=== PATIENT | male | born 2005 | race Caucasian/White ===

== ENCOUNTER 2024-10-15 13:34 | Emergency (ER) | payer OTHER, SELFPAY ==
--- OUTSIDE RECORDS SUMMARY | 2024-10-15 13:36 | XMS_ITS | Encounter Summary ---
Author Organization [facility] Address [address] [place] [address] Care Team Providers Care Automobile Brake Bonder Name Role Phone Vito Garcia MD Primary Care Provider [phone] Reason for Visit * Reason Onset Date Comments Insurance Issue/question 06/23/2017 Encounter Details Date Type Department Care Team (Late st Contact Info) Description 06/23/2017 Telephone [facility] - Neurology [facility] [place] [address] Alem Barrett APRN-CNP Insurance Issue/question Social History Tobacco Use Types Packs/Day Years Used Date Smoking Tobacco: Never Alcohol Use Standard Drinks/Week Comments No 0 (1 standard drink = 0.6 oz pur e alcohol) Sex and Gender Information Value Date Recorded Sex Assigned at Not on file Gender Identity Not on file Sexual Orientation Not on file documented as of this encounter Miscellaneous Notes * Telephone Encounter - Alem Barrett APRN-CNP - 06/23/2017 10:01 AM CDT Referral as requested for psychiatry placed. * Telephone Encounter - Chuy Judith M - 06/23/2017 9:38 AM CDT I spoke with mom and she needs a referral to Psychiatry instead of Psychology because insurance will not pay for it. documented in this encounter Plan of Treatment Not on file documented as of this encounter Visit Diagnoses Diagnosis Attention deficit hyperactivity disorder (ADHD), unspecified ADHD type- Primary documented in this encounter Care Teams Automobile Brake Bonder Relationship Specialty Start Date End Date Vito Garcia MD [address] [place] [id number] PCP - General Pediatrics 05/29/17 documented as of this encounter
--- OUTSIDE RECORDS SUMMARY | 2024-10-15 13:36 | XMS_ITS | Clinical Summary ---
Author Organization [facility] Address [address] [place] [address]. [place], [place] [address] [place] [address] Care Team Providers Care Blood Bank Booking Clerk Name Role Phone Unavailable Primary Care Provider Unavailabl e Social History Tobacco Use Types Packs/Day Years Used Date Smoking Tobacco: Never Assessed Sex and Gender Information Value Date Recorded Sex Assigned at Not on file Legal Sex Male 2:41 PM CDT Gender Identity Not on file Sexual Orientation Not on file Plan of Treatment Health Maintenance Due Date Last Done Comments Annual Physical 2007 HPV Vaccines (1 - Male 3-dos e series) 2019 Meningococcal B Vaccine (1 o f 2 - Standard) 2020 Hepatitis C 2022 DTaP, Tdap and Td Vaccines ( 1 - Tdap) 2023 Hepatitis B Vaccines (1 of 3 - 19+ 3-dose series) 2023 COVID-19 Vaccine ( - 2023-2 5 season) 2024 Influenza Adult (#1) 2024 Meningococcal Vaccine Aged Out No tyrone jennifer eligible based on patient's age to complete this topic Pneumococcal Vaccine: Pediat rics (0 to 5 Years) and At-Risk Patients (6 to 64 Years) Aged Out No longer eligible b ased on patient's age to complete this topic RSV Immunizations Under 20 Months Aged Out No longer eligible based on patient's age to complete this topic
--- OUTSIDE RECORDS SUMMARY | 2024-10-15 13:36 | XMS_ITS | Clinical Summary ---
Author Organization [facility] Address [address] [facility] [place] [address] Care Team Providers Care Chief Credit Officer Name Role Phone Vito Garcia MD Primary Care Provider [phone] Source Comments [facility],non-owned Affiliates and Associated Physician Practices is amultiple site organization consisting of ambulatory clinics and hospital sitesin [place], [place], [place] and [place]. This disclosure is being madepursuant to the Care Everywhere program and may not contain all information available regarding this patient. Last updated 18.[facility] Allergies No known active allergies Medications * Be aware that medications may not be up to date on this document. Alwaysverify current medications with the patient. 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 He stretches neck, eye blinking Vocal: Shouts out or screeches present before motor movements. He denies urges or suppressibility present. He is not always aware of movements and is not bothered by movements and vocalizations. Co-occurring conditions: ADHD/impulsivity yes Obsessive compulsive behavior-no Learning issues-no Behavior issues-none Anxiety-YES Mood problems-no Social skills deficits/social functioning-possibly Sleep problems-yes Assessment & Plan (07/06/2017 1:59 PM CDT): Tic disorder with associated anxiety and ADHD. Discussed tic disorder and usual progression. Discussed possible medications and side effects. Have declined treatmetn with medications. Also discussed that tics may worsen some with ADHD medications but family has not noted increase tics with adminitstation of ADHD medications. Discussed best way to manage tics in school setting. Encouraged counseling for anxiety concerns. Will follow up in about 3 months or sooner as needed Attention deficit hyperactivity disorder (ADHD) 06/19/2017 Resolved Problems Problem Noted Date Diagnosed Date Resolved Date Outbursts of explosive behavior 06/19/2017 07/06/2017 Overview (07/06/2017): Social History Tobacco Use Types Packs/Day Years Used Date Smoking Tobacco: Never Smokeless Tobacco: Never Alcohol Use Standard Drinks/Week Comments No 0 (1 standard drink = 0.6 oz pur e alcohol) Sex and Gender Information Value Date Recorded Sex Assigned at Not on file Gender Identity Not on file Sexual Orientation Not on file Last Filed Vital Signs Vital Sign Reading Time Taken Comments Blood Pressure 132/89 04/18/2018 1:50 PM CDT Pulse 68 04/18/2018 2:27 PM CDT Temperature 37.1 ??C (98.8 ??F) 04/18/2018 1:48 PM CD T Respiratory Rate 16 04/18/2018 2:27 PM CDT Oxygen Saturation 97% 04/18/2018 1:50 PM CDT Inhaled Oxygen Concentration - - Weight 61.4 kg (135 lb 5.8 oz) 06/18/2018 3:29 P M CDT Height 164.3 cm (5' 4.69 ) 06/18/2018 3:29 PM CD T Body Mass Index 22.75 06/18/2018 3:29 PM CDT Body Mass Index Percentile 87.01% 06/18/2018 3:2 9 PM CDT Growth Chart: CDC (Boys, 2-2 0 Years) Plan of Treatment Health Maintenance Due Date Last Done Comments HIV SCREENING 2019 HPV VACCINE (1 - Male 3-dose series) 2019 MENINGOCOCCAL (Group B) VACC INE (1 of 2 - Standard) 2020 HEPATITIS C SCREENING 10/23/2022 DTAP/TDAP/TD VACCINES (1 - Tdap) 2023 HEPATITIS B VACCINE (1 of 3 - 19+ 3-dose series) 2023 COVID-19 VACCINE (1 - 2023-2 5 season) 2024 INFLUENZA VACCINE (#1) 2024 DEPRESSION SCREENING 09/14/2024 ZOSTER VACCINE (1 of 2) 2054 HIB VACCINE Aged Out No longer eligi ble based on patient's age to complete this topic MENINGOCOCCAL VACCINE Aged Out No tyrone jennifer eligible based on patient's age to complete this topic PNEUMOCOCCAL VACCINE Aged Out No long er eligible based on patient's age to complete this topic Care Teams Chief Credit Officer Relationship Specialty Start Date End Date Vito Garcia MD [address] [place] [address] PCP - General Pediatrics 05/29/17
--- OUTSIDE RECORDS SUMMARY | 2024-10-15 13:36 | XMS_ITS | Patient Health Summary ---
Author Organization [facility] Address [address] [facility] [place] [address] Care Team Providers Care Gear Machinist Name Role Phone Vito Garcia MD Primary Care Provider Note from [facility],non-owned Affiliates and Associated Physician Practices is amultiple site organization consisting of ambulatory clinics and hospital sitesin [place], [place], [place] and [place]. This disclosure is being madepursuant to the Care Everywhere program and may not contain all information available regarding this patient. Last updated 18.[facility] Allergies No known active allergies Medications * Be aware that medications may not be up to date on this document. Alwaysverify current medications with the patient. 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/06/2017 Attention deficit hyperactivity disorder (ADHD) 06/19/2017 Resolved Problems Problem Noted Date Diagnosed Date Resolved Date Outbursts of explosive behavior 06/19/2017 07/06/2017 Social History Tobacco Use Types Packs/Day Years [...] 06/18/2018 3:2 9 PM CDT Growth Chart: [facility] (Boys, 2-2 0 Years) Procedures * XR WRIST LEFT 3VW OR MORE(Performed 06/18/2018) Performed for Left wrist injury, initial encounter * XR PANOREX(Performed 05/18/2018) Performed for Open fracture of left side of mandibular body with routine healing * XR SKULL 3VW OR LESS(Performed 05/18/2018) Performed for Open fracture of left side of mandibular body with routine healing * XR WRIST LEFT 3VW OR MORE(Performed 05/18/2018) Performed for Left wrist injury, initial encounter * ED LACERATION REPAIR(Performed 04/18/2018) Performed for Facial laceration, initial encounter * XR PANOREX(Performed 04/18/2018) Performed for Jaw fracture, closed, initial encounter ([facility]) * XR OUTSIDE CONSULTATION(Performed 04/18/2018) Performed for Wrist injury, left, initial encounter Results * XR WRIST LEFT 3VW OR MORE (06/18/2018 3:45 PM CDT) Only the most recent of2 resultswithin the time period is included. Anatomical Region Laterality Modality Wrist / Hand Radiographic Elvi ging 06/18/2018 3:46 PM CDT Impressions 06/18/2018 3:47 PM CDT 1. Minimally displaced ulnar styloid fracture. 2. Mild sclerosis along the distal radial metaphysis, likely healing fracture in near anatomic alignment. Reading Radiologist: Jacque Prater MD on 06/18/2018 at 3:47 PM Narrative 06/18/2018 3:47 PM CDT EXAMINATION: Left wrist 3 views HISTORY: Injury. COMPARISON: 05/18/2018. FINDINGS: Three-view examination of the left wrist is obtained. There is a minimally displaced ulnar styloid fracture. Mild sclerosis along the distal radial metaphysis, likely represents a healing fracture in near anatomic alignment. Mild soft tissue edema is present. The joint spaces appear normal. Procedure Note Jacque Prater MD - 06/18/2018 EXAMINATION: Left wrist 3 views HISTORY: Injury. COMPARISON: 05/18/2018. FINDINGS: Three-view examination of the left wrist is obtained. There is a minimally displaced ulnar styloid fracture. Mild sclerosis along the distal radial metaphysis, likely represents a healing fracture in near anatomic alignment. Mild soft tissue edema is present. The joint spaces appear normal. IMPRESSION 1. Minimally displaced ulnar styloid fracture. 2. Mild sclerosis along the distal radial metaphysis, likely healing fracture in near anatomic alignment. Reading Radiologist: Jacque Prater MD on 06/18/2018 at 3:47 PM Oskar Bello PA-C DIAGNOSTIC IMAGING O RDERABLES * XR PANOREX (05/18/2018 3:01 PM CDT) Only the most recent of2 resultswithin the time period is included. Anatomical Region Laterality Modality Head Radiographic Elvi ging 05/18/2018 3:22 PM CDT Impressions 05/18/2018 4:37 PM CDT Left mandibular angle fracture is healing. I, Dimitri Correia, have personally reviewed the images and I agree with this report. Reading Radiologist: Darcy Martin MD on 05/18/2018 at 4:37 PM Narrative 05/18/2018 4:37 PM CDT Exam: Panorex HISTORY: 12-year-old male with left mandibular fracture. COMPARISON: Prior Panorex dated 04/18/2018. FINDINGS: The previously identified left mandibular angle fracture is not well visualized on today's study and better characterized on the previous CT facial bones from outside hospital dated 04/18/2018. The bone mineralization is normal. The visible portions of the temporomandibular joints are normal. Procedure Note Dimitri Correia MD - 05/18/2018 Exam: Panorex HISTORY: 12-year-old male with left mandibular fracture. COMPARISON: Prior Panorex dated 04/18/2018. FINDINGS: The previously identified left mandibular angle fracture is not well visualized on today's study and better characterized on the previous CT facial bones from outside hospital dated 04/18/2018. The bone mineralization is normal. The visible portions of the temporomandibular joints are normal. IMPRESSION Left mandibular angle fracture is healing. IDimitri, have personally reviewed the images and I agree with this report. Reading Radiologist: Darcy Martin MD on 05/18/2018 at 4:37 PM Naresh Cash MD DIAGNOSTIC IMAGING O RDERABLES * XR SKULL < 4 VW (05/18/2018 3:00 PM CDT) Anatomical Region Laterality Modality Head Radiographic Elvi ging 05/18/2018 3:08 PM CDT Impressions 05/18/2018 4:58 PM CDT Nondisplaced left mandibular angle fracture. IDimitri, have personally reviewed the images and I agree with this report. Reading Radiologist: Darcy Martin MD on 05/18/2018 at 4:58 PM Narrative 05/18/2018 4:58 PM CDT Skull x-ray: AP and lateral views of the skull were obtained. Comparison: No prior Findings: Linear lucency in the left mandible angle, consistent with known fracture. The fracture is best seen on the outside hospital CT facial bone dated 04/18/2018. The calvaria and skull base are normal. The visualized cervical spine appears normal. Procedure Note Dimitri Correia MD - 05/18/2018 Skull x-ray: AP and lateral views of the skull were obtained. Comparison: No prior Findings: Linear lucency in the left mandible angle, consistent with known fracture. The fracture is best seen on the outside hospital CT facial bone dated 04/18/2018. The calvaria and skull base are normal. The visualized cervical spine appears normal. IMPRESSION Nondisplaced left mandibular angle fracture. I, Dimitri Correia, have personally reviewed the images and I agree with this report. Reading Radiologist: Darcy Martin MD on 05/18/2018 at 4:58 PM Naresh Cash MD DIAGNOSTIC IMAGING O RDERABLES * ED LACERATION REPAIR (04/18/2018 3:50 PM CDT) Narrative Tim Otero MD - 04/18/2018 3:50 PM CDT Tim Otero MD ? 04/18/2018 ??3:50 PM Laceration Repair Date/Time: 04/18/2018 10:24 AM Performed by: TIM OTERO Authorized by: TIM OTERO Consent: ??Consent obtained: ??Verbal ??Consent given by: ??Parent ??Risks discussed: ??Poor cosmetic result ??Alternatives discussed: ??No treatment Anesthesia (see MAR for exact dosages): ??Anesthesia method: ??Local infiltration ??Local anesthetic: ??Lidocaine 1% WITH epi Laceration details: ??Location: ??Face ??Face location: ??Chin ??Length (cm): ??2.5 Repair type: ??Repair type: ??Simple Pre-procedure details: ??Preparation: ??Patient was prepped and draped in usual sterile fashion Exploration: ??Contaminated: no ?? Treatment: ??Area cleansed with: ??Saline ??Amount of cleaning: ??Standard ??Irrigation solution: ??Sterile saline ??Irrigation volume: ??250 milliliters ??Irrigation method: ??Syringe Skin repair: ??Repair method: ??Sutures ??Suture size: ??5-0 ??Suture material: ??Fast-absorbing gut ??Number of sutures: ??8 Approximation: ??Approximation: ??Close ??Vermilion border: well-aligned ?? Post-procedure details: ??Dressing: ??Antibiotic ointment Tim Otero MD PROCEDURE/MINOR SURG ICAL ORDERABLES * XR OUTSIDE CONSULTATION (04/18/2018 10:40 AM CDT) Anatomical Region Laterality Modality Radiographic Elvi ging 04/18/2018 10:5 2 AM CDT Impressions 04/18/2018 10:59 AM CDT Linear lucency in the distal pole of the left scaphoid may represent a nondisplaced fracture. The findings, conclusions and recommendations within this report do not replace the initial findings, conclusions ??and recommendations made at the facility where the study was performed based upon the imaging and clinical condition at that time. ??Comparison with the prior report and clinical history is necessary. ??The provided images may or may not represent the unga source data set and thus may contain changes which may lower the sensitivity in the second opinion interpretation. Reading Radiologist: Charline Bill MD on 04/18/2018 at 10:59 AM Narrative 04/18/2018 10:59 AM CDT EXAMINATION: ??RADIOLOGY CONSULTATION ON OUTSIDE IMAGING STUDY STUDY INITIALLY PERFORMED: ??On 04/18/2018 by [facility]. TYPE OF STUDY: AP, oblique, and lateral radiographs of the left wrist and a lateral radiograph of the right wrist were submitted for interpretation. The protocol was adequate to answer the clinical question. ? The outside final report was not provided at the time of this second opinion. DATE OF CONSULTATION: ??04/18/2018 REASON FOR CONSULTATION: 12-year-old male status post fall from bunk bed with complains of wrist pain. COMPARISON: ??None FINDINGS: Left: There is a linear lucency extending through the distal pole of the scaphoid on the AP image which may represent a nondisplaced fracture. The remaining osseous structures are intact and well aligned. The bone mineralization is normal. Right: A single lateral projection radiograph of the right wrist is available for interpretation. The alignment is maintained. There is no evidence of grossly displaced fracture. Procedure Note Charline Bill MD - 04/18/2018 EXAMINATION: RADIOLOGY CONSULTATION ON OUTSIDE IMAGING STUDY STUDY INITIALLY PERFORMED: On 04/18/2018 by [facility]. TYPE OF STUDY: AP, oblique, and lateral radiographs of the left wrist and a lateral radiograph of the right wrist were submitted for interpretation. The protocol was adequate to answer the clinical question. The outside final report was not provided at the time of this second opinion. DATE OF CONSULTATION: 04/18/2018 REASON FOR CONSULTATION: 12-year-old male status post fall from bunk bed with complains of wrist pain. COMPARISON: None FINDINGS: Left: There is a linear lucency extending through the distal pole of the scaphoid on the AP image which may represent a nondisplaced fracture. The remaining osseous structures are intact and well aligned. The bone mineralization is normal. Right: A single lateral projection radiograph of the right wrist is available for interpretation. The alignment is maintained. There is no evidence of grossly displaced fracture. IMPRESSION Linear lucency in the distal pole of the left scaphoid may represent a nondisplaced fracture. The findings, conclusions and recommendations within this report do not replace the initial findings, conclusions and recommendations made at the facility where the study was performed based upon the imaging and clinical condition at that time. Comparison with the prior report and clinical history is necessary. The provided images may or may not represent the unga source data set and thus may contain changes which may lower the sensitivity in the second opinion interpretation. Reading Radiologist: Charline Bill MD on 04/18/2018 at 10:59 AM Tim Otero MD DIAGNOSTIC IMAGING O [facility] Care Teams Gear Machinist Relationship Specialty Start Date End Date Vito Garcia MD [address] [place] [address] PCP - General Pediatrics 05/29/17
--- OUTSIDE RECORDS SUMMARY | 2024-10-15 13:36 | XMS_ITS | Referral Summary ---
Author Organization [facility] Address [address] [place] [address] Care Team Providers Care Wiring Technician Name Role Phone Vito Garcia MD Primary Care Provider [phone] Source Comments [facility],non-owned Affiliates and Associated Physician Practices is amultiple site organization consisting of ambulatory clinics and hospital sitesin [place], [place], [place] and [place]. This disclosure is being madepursuant to the Care Everywhere program and may not contain all information available regarding this patient. Last updated 18.[facility] Allergies No known active allergies Medications * [...] (Boys, 2-2 0 Years) Plan of Treatment Not on file Care Teams Wiring Technician Relationship Specialty Start Date End Date Vito Garcia MD [address] [place] [address] PCP - General Pediatrics 05/29/17
--- OUTSIDE RECORDS SUMMARY | 2024-10-15 13:37 | XMS_ITS | Encounter Summary ---
Author Organization [facility] Address [address] [place] [address] Phone Care Team Providers Care Collar Padder Blindstitch Name Role Phone Vito Garcia MD Primary Care Provider [phone] Encounter Details Date Type Department Care Team (Late st Contact Info) Description 06/18/2017 Orders Only [facility] [address] [place] [address] Jen Krishnan, RN Social History Tobacco Use Types Packs/Day Years Used Date Smoking Tobacco: Never Sex and Gender Information Value Date Recorded Sex Assigned at Not on file Legal Sex Male 1:52 AM LIFE SKILLS COORDINATOR Gender Identity Not on file Sexual Orientation Not on file documented as of this encounter Ordered Prescriptions Prescription Sig Dispense Quantity Refills Last Filled Start Date End Date guanFACINE (TENEX) 2 mg tablet Give 1/2 tablet (1mg) q hs 15 tablet 06/18/2017 08/13/2017 documented in this encounter Plan of Treatment Not on file documented as of this encounter Visit Diagnoses Not on filedocumented in this encounter Care Teams Collar Padder Blindstitch Relationship Specialty Start Date End Date Vito Garcia MD [address] [place] [address] PCP - General 12/12/16 documented as of this encounter
--- OUTSIDE RECORDS SUMMARY | 2024-10-15 13:37 | XMS_ITS | Encounter Summary ---
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 Not to exceed 3 times/day. 180 mL 08/13/2017 documented in this encounter Plan of Treatment Not on file documented as of this encounter Visit Diagnoses Not on filedocumented in this encounter Discontinued Medications Medication Sig Discontinue Reason Start Date End Da te albuterol (PROVENTIL,VENTOLIN) 2 mg/5 mL syrup take 3/4 - 1 teaspoon by oral route 3 times every day x 7 days and then as needed for cough. not to exceed 3 times/day Reorder 10/17/2016 08/13/2017 documented as of this encounter Care Teams Roto Mixer Operator Relationship Specialty Start Date End Date Vito Garcia MD [address] [place] [address] PCP - General 12/12/16 documented as of this encounter
--- OUTSIDE RECORDS SUMMARY | 2024-10-15 13:37 | XMS_ITS | Encounter Summary ---
Author Organization [facility] Address [address] [place] [address] Phone Care Team Providers Care Shrinking Machine Operator Name Role Phone Vito Garcia MD Primary Care Provider [phone] Encounter Details Date Type Department Care Team (Late st Contact Info) Description 04/01/2017 Orders Only [facility] [address] [place] [address] Jen Krishnan RN Acute swimmer's ear of right side Social History Tobacco Use Types Packs/Day Years Used Date Smoking Tobacco: Never Sex and Gender Information Value Date Recorded Sex Assigned at Not on file 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 10 mL 04/01/2017 7 neomycin-polymyxin -HC (CORTISPORIN) 3.5-10,000-1 mg/mL-unit/mL-% otic suspension 3-5 drops to the affected ear 4 times a day 10 mL 04/01/2017 7 documented in this encounter Plan of Treatment Not on file documented as of this encounter Visit Diagnoses Diagnosis Acute swimmer's ear of right side documented in this encounter Discontinued Medications Medication Sig Discontinue Reason Start Date End Da te ilrsfvtt-oxkkwitsl-WI (CORTISPORIN) 3.5-10,000-1 mg/mL-unit/mL-% otic suspension 3-5 drops to the affected ear 4 times a day Alternate therapy 04/01/2017 04/01/2017 ofloxacin (FLOXIN) 0.3 % otic solutionIndications:Ot itis Externa Administer 5 drops into the right ear 2 (two) times a day for 7 days. Reorder 04/01/2017 04/01/2017 documented as of this encounter Care Teams Shrinking Machine Operator Relationship Specialty Start Date End Date Vito Garcia MD [address] [place] [address] [place] [id number] PCP - General 12/12/16 documented as of this encounter
--- OUTSIDE RECORDS SUMMARY | 2024-10-15 13:37 | XMS_ITS | Clinical Summary ---
Author Organization [facility] 1 [employer] Address [address] [address] Phone Care Team Providers Care Drier Belt Conveyor Name Role Phone Vito Garcia MD Primary Care Provider Allergies No known active allergies Medications dexmethylphenidat e (FOCALIN) 5 mg tablet take 1 tablet by oral route 2 times every day at least 4 hours apart 0 0 7 Active Additional Information Patient not taking.Reported on 02/29/2024 dexmethylphenidat e (FOCALIN) 2.5 mg tabletIndications :Attention-Defici t Hyperactivity Disorder 0 7 Active FOCALIN XR 30 mg 24 hr capsuleIndication s:Attention-Defic it Hyperactivity Disorder 0 7 Active dexmethylphenidat e (FOCALIN) 10 mg tabletIndications :Attention-Defici t Hyperactivity Disorder 0 7 Active albuterol (PROVENTIL,VENTOL IN) 0.4 mg/mL syrup Take 3/4 teaspoon by oral route 3 times every day x 7 days then as needed for cough. Not to exceed 3 times/day. 180 mL 7 Active Additional Information Patient not taking.Reported on 02/29/2024 melatonin tablet Take 1 tablet (3 mg total) by mouth Active guanFACINE (TENEX) 1 mg tablet 1 tablet (1 mg total) 6 Active dexmethylphenidat e XR (FOCALIN XR) 5 mg 24 hr capsuleIndication s:Attention-Defic it Hyperactivity Disorder Take 1 capsule (5 mg total) by mouth Active dexmethylphenidat e (FOCALIN) 2.5 mg tabletIndications :Attention-Defici t Hyperactivity Disorder Take 1 tablet (2.5 mg total) by mouth Active dexmethylphenidat e XR (FOCALIN XR) 35 mg 24 hr capsuleIndication s:Attention-Defic it Hyperactivity Disorder Take 30 mg by mouth Active guanFACINE (TENEX) 1 mg tablet TAKE 1 TABLET(1 MG) BY MOUTH EVERY NIGHT 30 tablet 9 Active Additional Information Patient not taking.Reported on 02/29/2024 guanFACINE (TENEX) 1 mg tablet TAKE 1 TABLET(1 MG) BY MOUTH EVERY NIGHT 30 tablet 0 Active Additional Information Patient not taking.Reported on 02/29/2024 lisdexamfetamine (Vyvanse) 40 mg capsuleIndication s:Attention deficit disorder (ADD) without hyperactivity Take 1 capsule (40 mg total) by mouth every morning 30 capsule 2 Active Additional Information Patient not taking.Reported on 08/16/2023 lisdexamfetamine (Vyvanse) 30 mg capsule Take 1 capsule (30 mg total) by mouth every morning 30 capsule 3 Active Additional Information Patient not taking.Reported on 08/16/2023 multivitamin capsule Take 1 capsule by mouth daily Active Active Problems Problem Noted Date Diagnosed Date Sore throat 08/28/2023 Contusion of left thigh 04/11/2022 Other sprain of left shoulder joint, initial enc ounter 06/14/2021 Sprain of deltoid ligament of right ankle 2018 Encounter for routine child health examination without abnormal findings 05/26/2018 Transient tic disorder 07/06/2017 Overview (12/14/2017): Overview: H/O abnormal involuntary movements, present since possibly todderhood. He stretches neck, eye blinking Vocal: Shouts out or screeches present before motor movements. He denies urges or suppressibility present. He is not always aware of movements and is not bothered by movements and vocalizations. Co-occurring conditions: ADHD/impulsivity yes Obsessive compulsive behavior-no Learning issues-no Behavior issues-none Anxiety-YES Mood problems-no Social skills deficits/social functioning-possibly Sleep problems-yes Last Assessment & Plan: Tic disorder with associated anxiety and ADHD. 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 05-28-17 New Agreement Signed & UDS shows COMPLIANCE. 10/27/17 dec to Vyvanse 30mg am. 07/06/18 #2 UDS shows COMPLIANCE. 08/31/19 UDS shows COMPLIANCE. Closed fracture of clavicle 05/02/2013 Immunizations Name Administration Dates Next Due DTaP 5 Pertussis 01/14/2010, 6,04/29/2005,03/03/2005, 2004 HPV9 05/29/2020,04/11/2016 Hep A, Pediatric 04/07/2022 Hep A, Unspecified 04/11/2016 Hep B / HiB 04/29/2005 Hep B, Adolescent or Pediatric 2004,2004 Hib (HbOC) 02/02/2006,03/03/2005,2004 IPV 01/14/2010,02/02/2006,03/03/2005 ,2004 MMRV 01/14/2010,10/28/2005 Meningococcal B, OMV (Bexsero) 04/07/2022 Meningococcal C/Y-HIB PRP 04/11/2016 Meningococcal MCV4P (Menactra) 04/07/2022 Pneumococcal Conjugate 7-Valent 02/02/2006,04/29,03/03/2005,2004 Tdap 04/11/2016 Social History Tobacco Use Types Packs/Day Years Used Date Smoking Tobacco: Never Tobacco Cessation:Counseling Given: Not Answered Personal Safety Answer Date Recorded Getting School Help Needed Not on file 08/28 Sex and Gender Information Value Date Recorded Sex Assigned at Not on file 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 Gender Identity Not on file Sexual Orientation Not on file Obstetrics History Growth Chart Information Age Height Weight Yrijdm-len-rdhc th Percentile BMI Percentile Head Circum Head Circum Percentile Date 18 years 177.8 cm (5' 10 ) 81.6 kg (180 lb) 80.87%* 2023 17 years 81.4 kg (179 lb 6.4 oz) 2022 17 years 177.8 cm (5' 10 ) 82.6 kg (182 lb) 84.59%* 2022 17 years 177.8 cm (5' 10 ) 82.7 kg (182 lb 6.4 oz) 84.91%* 2022 17 years 179.7 cm (5' 10.75 ) 81.6 kg (179 lb 12.8 oz) 81.84%* 2022 17 years 179.7 cm (5' 10.75 ) 80.2 kg (176 lb 12.8 oz) 80.26%* 2022 16 years 179.1 cm (5' 10.5 ) 75.8 kg (167 lb 3.2 oz) 73.15%* 2021 16 years 76.3 kg (168 lb 3.2 oz) 2021 15 years 71.7 kg (158 lb) 2020 15 years 176.5 cm (5' 9.5 ) 69.2 kg (152 lb 8 oz) 66.10%* 2020 14 years 176.5 cm (5' 9.5 ) 73.2 kg (161 lb 6.4 oz) 81.49%* 2020 14 years 174 cm (5' 8.5 ) 70.7 kg (155 lb 12.8 oz) 82.01%* 2019 14 years 174 cm (5' 8.5 ) 66.7 kg (147 lb) 75.15%* 2019 13 years 170.2 cm (5' 7 ) 64.9 kg (143 lb) 79.53%* 2018 13 years 171.5 cm (5' 7.5 ) 61.7 kg (136 lb) 68.89%* 2018 13 years 57.6 kg (127 lb) 2018 13 years 167.6 cm (5' 6 ) 56.7 kg (125 lb) 62.80%* 2018 12 years 166.4 cm (5' 5.5 ) 57.2 kg (126 lb) 70.34%* 2018 12 years 163.2 cm (5' 4.25 ) 63 kg (139 lb) 90.37%* 2017 12 years 64.4 kg (142 lb) 2017 12 years 162.6 cm (5' 4 ) 58.5 kg (129 lb) 84.19%* 2017 12 years 157.5 cm (5' 2 ) 50.3 kg (111 lb) 72.53%* 2017 11 years 156.2 cm (5' 1.5 ) 45.8 kg (101 lb) 55.93%* 2017 11 years 151.8 cm (4' 11.75 ) 41.3 kg (91 lb) 45.85%* 2016 11 years 151.1 cm (4' 11.5 ) 41.7 kg (92 lb) 51.79%* 2016 11 years 152.4 cm (5') 40.8 kg (90 lb) 40.16%* 2016 11 years 41.3 kg (91 lb) 2016 11 years 40.1 kg (88 lb 8 oz) 2016 11 years 38.6 kg (85 lb) 2016 11 years 149.9 cm (4' 11 ) 38.8 kg (85 lb 8 oz) 39.79%* 2016 10 years 151.8 cm (4' 11.75 ) 38.7 kg (85 lb 6.4 oz) 32.79%* 2016 10 years 39.2 kg (86 lb 8 oz) 2015 10 years 38.6 kg (85 lb) 2015 10 years 146.1 cm (4' 9.5 ) 39 kg (86 lb) 64.43%* 2015 10 years 144.1 cm (4' 8.75 ) 37.2 kg (82 lb) 60.69%* 2015 9 years 143.5 cm (4' 8.5 ) 36.1 kg (79 lb 8 oz) 56.96%* 2015 9 years 35.8 kg (79 lb) 2014 9 years 140.3 cm (4' 7.25 ) 36.3 kg (80 lb) 75.22%* 2014 9 years 141 cm (4' 7.5 ) 36.1 kg (79 lb 8 oz) 73.36%* 2014 9 years 36.1 kg (79 lb 8 oz) 2014 8 years 33.8 kg (74 lb 8 oz) 2013 8 years 141 cm (4' 7.5 ) 33.3 kg (73 lb 8 oz) 54.55%* 2013 8 years 136.5 cm (4' 5.75 ) 32.7 kg (72 lb) 69.08%* 2013 8 years 135.3 cm (4' 5.25 ) 30.8 kg (68 lb) 63.32%* 2013 7 years 30.6 kg (67 lb 8 oz) 2012 7 years 134.6 cm (4' 5 ) 30.6 kg (67 lb 8 oz) 68.78%* 2012 7 years 31.3 kg (69 lb) 2012 7 years 132.1 cm (4' 4 ) 29.5 kg (65 lb) 72.85%* 2012 6 years 130.8 cm (4' 3.5 ) 29.5 kg (65 lb) 78.72%* 2011 6 years 132.1 cm (4' 4 ) 29.9 kg (66 lb) 79.38%* 2011 * [facility] (Boys, 2-20 Years) Last Filed Vital Signs Vital Sign Reading Time Taken Comments Blood Pressure 102/70 02/29/2024 12:20 PM CDT Pulse 60 02/29/2024 12:20 PM CDT Temperature 36.4 ??C (97.5 ??F) 02/29/2024 12:20 PM C DT Respiratory Rate 16 02/29/2024 12:20 PM CDT Oxygen Saturation 98% 02/29/2024 12:20 PM CDT Inhaled Oxygen Concentration - - Weight 81.6 kg (180 lb) 02/29/2024 12:20 PM CDT Height 177.8 cm (5' 10 ) 02/29/2024 12:20 PM CDT Body Mass Index 25.83 02/29/2024 12:20 PM CDT Plan of Treatment Health Maintenance Due Date Last Done Comments Depression Screening 2004 Hepatitis C Screening 2004 Meningococcal B Vaccine (2 o f 2 - Risk Bexsero 2-dose series) 05/05/2022 04/07/2022 Regular Well Visit/Exam 18-64 2022 Influenza Vaccine (#1) 2024 DTaP/Tdap/Td Vaccine (7 - Td or Tdap) 04/11/2026 04/11/2016, 01/14/2010, 02/02/2006, Additional history exists Pneumococcal vaccine <65 Completed 006, 04/29/2005, 03/03/2005, Additional history exists Varicella Vaccines Completed 01/14/2010, 10/28/2005 HPV Vaccines Completed 05/29/2020, 04/11/2016 Meningococcal Vaccine Completed 04/07/2022, 016 Insurance [facility] [place] [address] IDPA [facility] Care Teams Drier Belt Conveyor Relationship Specialty Start Date End Date Vito Garcia MD [address] [place] [id number] PCP - General 12/12/16
--- OUTSIDE RECORDS SUMMARY | 2024-10-15 13:37 | XMS_ITS | Referral Summary ---
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
[2024-10-15 13:39] VITALS: BP 104/52; PULSE 70; RESP 20; TEMP 37; O2SAT 100
--- NOTE | 2024-10-15 14:25 | ED.URI ---
HPI - URI/Sore Throat General Chief Complaint: Upper Respiratory Infection Stated Complaint: Sore Throat Time Seen by Provider: 10/15/24 14:15 Source: patient, RN notes reviewed and old records reviewed Mode of arrival: ambulatory Limitations: no limitations History of Present Illness HPI Narrative: 18 year old male patient presents to [facility] care with complaints of 10 day duration of sore throat discomfort some fevers, and some cold symptoms. 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 Patient admits to increased pain with swallowing. MD elicited complaint: fever, sore throat and other (cold symptoms) Onset (ago): day(s) (10) Pain scale (0-10): 6 Able to tolerate fluids by mouth: Yes Exacerbating factors: swallowing Treatments prior to arrival: acetaminophen and ibuprofen Related Data Allergies Allergy/AdvReac Type Severity Reaction Status Date / Time No Known Allergies Allergy Verified 10/15/24 13:48 Review of Systems Review of Systems: CONSTITUTIONAL: Reports malaise, chills, sweats, or fever. EYES: Denies visual changes, redness, or discharge. ENT: Reports rhinorrhea, congestion, no sinus pain,no otalgia and positive for sore throat. CARDIOVASCULAR: Denies chest pain, palpitations, or edema. RESPIRATORY: Reports no cough.? Denies dyspnea. GASTROINTESTINAL: Denies abdominal pain, nausea, vomiting, diarrhea SKIN: Denies rash or itching. MUSCULOSKELETAL: Denies myalgia. NEUROLOGIC: Denies headache. All systems reviewed & are unremarkable except as noted in HPI and below PMFSH Past Medical History Medical History ADHD (attention deficit hyperactivity disorder) Family History Family History Father Depression Grandparent Hypertension Social History Social History Smoking status: Never smoker Lack of Transportation: No Lack of Food: Never True Current Housing: I Have Housing Concerned About Future Housing: No Difficulty Paying Gas/Electric Bills: No Difficulty Paying for Meds: No Currently Unemployed: No Education: High School Diploma/GED Difficulty w/ Childcare or Family Care: No Living arrangements: with family Occupation/Education: student Additional occupation/education comments: [employer] Gender identity (if verbalized by the patient): Male Comments At time of signature, agree with nursing past medical, surgical, social and family history. There is no relevant family history pertinent to the presenting complaint Exam Narrative: GENERAL: Well-appearing, well-nourished, and in no acute distress. HEAD: Normocephalic EYES: PERRLA, conjunctivae clear ENT: Nares clear, turbinates edematous and erythematous, clear discharge. Mucous membranes moist. TM pearly samayoa with dull light reflex bilaterally; no tragal tenderness. Oropharynx erythematous without lesions. Tonsils red and enlarged and without exudate, no drooling, no hoarseness, no trismus, uvula midline.some post nasal drainage noted. NECK: Supple. lymphadenopathy CHEST: Clear to auscultation, breath sounds equal. No wheezing, rhonchi, rales, or stridor. No respiratory distress, speaks in full sentences.no cough noted SAO2 100% on room air HEART: Regular rate and rhythm. No murmur heard. SKIN: Warm, dry, no rash. NEURO: Alert and oriented x3. PSYCH: Normal mood and affect Course Course Emergency Course: Patient is aware of diagnosis, understands and agrees to treatment plan.? Anticipatory guidance given.? Patient agrees to follow-up as directed and is aware of reasons to seek care at the emergency department. Portions of this record may have been created with voice recognition software Level of Care: Express Care Visit Vital Signs Vital signs: Vital Signs Temperature 37.0 C 10/15/24 13:39 Pulse Rate 70 10/15/24 13:39 Respiratory Rate 10/15/24 13:39 Blood Pressure 104/52 L 10/15/24 13:39 Pulse Oximetry 100 10/15/24 13:39 Oxygen Delivery Room Air 10/15/24 13:39 Temperature 37.0 C 10/15/24 13:39 Pulse Rate 70 10/15/24 13:39 Respiratory Rate 10/15/24 13:39 Blood Pressure 104/52 L 10/15/24 13:39 Pulse Oximetry 100 10/15/24 13:39 Oxygen Delivery Room Air 10/15/24 13:39 Reviewed MDM - URI/Sore Throat MDM Narrative Medical decision making narrative: Differential diagnosis considered: Cohen virus, strep pharyngitis, allergic rhinitis, upper respiratory tract infection, sinusitis, rhinosinusitis, nasopharyngitis. viral pharyngitis, otitis media, otitis externa, pneumonia, bronchitis, viral cough syndrome, viral syndrome, and influenza.? Exam findings show no acute concerns or changes; patient is non-toxic appearing and is in no distress.? Patient is appropriate for outpatient treatment and follow-up. Differential Diagnosis Differential diagnosis: Likely upper respiratory infection, sinusitis, viral infection, pharyngitis and other (strep pharyngitis) Medical Records Attestation: I reviewed the patient's medical records. Lab Data Attestation: I reviewed the patient's lab results. Lab results narrative: strep screen positive Labs: Lab Results 10/15/24 Range/Units 13:50 POC Grp A Strep Screen Positive (Negative) Critical Care Time Critical Care Time Critical Care Time: No Discharge Plan Discharge Clinical Impression: Strep throat Patient Disposition: Home, Self-Care Condition: Stable Instructions: Antibiotic Form, Strep Throat (ED) Additional Instructions: You tested positive for Group A strep . Take the entire course of antibiotics. Throw away your current toothbrush and begin using a new toothbrush in 48 hours in order to prevent re-infection. Sanitize all reusable water bottles . Do not share items with others. Salt water gargles may alleviate some of the throat discomfort. You can take Tylenol or ibuprofen per the package instructions for pain/fever. You are considered contagious until you have been on oral antibiotics for 24 hours Patient Language: Mohawk Prescriptions: New amoxicillin 875 mg tablet 875 mg PO Q12H Qty: 20 0RF Rx Instructions: take all doses of medication Follow-up/Referrals: Vandana Tabares APRN [Primary Care Provider] - Time of Disposition: 14:28 [employer] Coma Scale Eyes: Open Verbal: Oriented and Alert Motor: Follows Commands Verito Coma Total Score: 15
[2024-10-15 14:40] LABS: EDSTREPNEGPOS1 Positive (Negative)
== END 2024-10-15 14:37 | disposition home or self-care (01) ==
PROVIDERS: Emergency Provider Registered Nurse; PCP Nurse Practitioner Adult Health
DX: J02.0 Streptococcal pharyngitis (principal)
CPT/HCPCS: 87081; 87880; 99213; G0463

== ENCOUNTER 2024-10-21 16:53 | Emergency (ER) | payer OTHER, SELFPAY ==
--- OUTSIDE RECORDS SUMMARY | 2024-10-21 16:55 | XMS_ITS | Referral Summary ---
Author Organization [facility] Address [address] [place] [address] Care Team Providers Care Photographer News Name Role Phone Vito Garcia MD Primary Care Provider [phone] Source Comments [facility],non-owned Affiliates and Associated Physician Practices is amultiple site organization consisting of ambulatory clinics and hospital sitesin [place], [place], [place] and [place]. This disclosure is being madepursuant to the Care Everywhere program and may not contain all information available regarding this patient. Last updated 18.[facility] Allergies No known active [...] 68 04/18/2018 2:27 PM CDT Temperature 37.1 C (98.8 F) 04/18/2018 1:48 PM CDT Respiratory Rate 16 04/18/2018 2:27 PM CDT [...] of Treatment Not on file Care Teams Photographer News Relationship Specialty Start Date End Date Vito Garcia MD [address] [place] [address] PCP - General Pediatrics 05/29/17
--- OUTSIDE RECORDS SUMMARY | 2024-10-21 16:55 | XMS_ITS | Referral Summary ---
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 Gender Identity Not on file Sexual Orientation Not on file Last Filed Vital Signs Vital Sign Reading Time Taken Comments Blood Pressure 102/70 02/29/2024 12:20 PM CDT Pulse 60 02/29/2024 12:20 PM CDT Temperature 36.4 C (97.5 F) 02/29/2024 12:20 PM CDT Respiratory Rate 16 02/29/2024 12:20 PM CDT Oxygen Saturation 98% 02/29/2024 12:20 PM CDT Inhaled Oxygen Concentration - - Weight 81.6 kg (180 lb) 02/29/2024 12:20 PM CDT Height 177.8 cm (5' 10 ) 02/29/2024 12:20 PM CDT Body Mass Index 25.83 02/29/2024 12:20 PM CDT Plan of Treatment Not on file Insurance [facility] IDPA IDPA Care Teams Streetcar Repairer Helper Relationship Specialty Start Date End Date Vito Garcia MD [address] [place] [address] PCP - General 12/12/16
--- OUTSIDE RECORDS SUMMARY | 2024-10-21 16:55 | XMS_ITS | Clinical Summary ---
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 Gender Identity Not on file Sexual Orientation Not on file Obstetrics History Growth Chart Information Age Height Weight Aivgkf-gec-gkjn th Percentile BMI Percentile Head Circum Head [...] lb) 79.38%* 2011 * [facility] (Boys, 2-20 Years) Last Filed Vital Signs [...] 04/11/2026 04/11/2016, 01/14/2010, 02/02/2006, Additional history exists Hepatitis B Screening Completed 04/29/2005 , 2004, 2004 Pneumococcal vaccine <65 Completed 006, 04/29/2005, 03/03/2005, Additional history exists Varicella Vaccines Completed 01/14/2010, 10/28/2005 HPV Vaccines Completed 05/29/2020, 04/11/2016 Meningococcal Vaccine Completed 04/07/2022, 016 Insurance [facility] [address] [facility] IDIA IDIA Care Teams Professor Of French Relationship Specialty Start Date End Date Vito Garcia MD [address] [place] [address] PCP - General 12/12/16
--- OUTSIDE RECORDS SUMMARY | 2024-10-21 16:55 | XMS_ITS | Encounter Summary ---
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
--- OUTSIDE RECORDS SUMMARY | 2024-10-21 16:55 | XMS_ITS | Encounter Summary ---
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
--- OUTSIDE RECORDS SUMMARY | 2024-10-21 16:55 | XMS_ITS | Clinical Summary ---
Author Organization [facility] Address [address] [facility] [place] [address] Care Team Providers Care Boom Storage Name Role Phone Vito Garcia MD Primary Care Provider Source Comments [facility],non-owned Affiliates and Associated Physician Practices is amultiple site organization consisting of ambulatory clinics and hospital sitesin [place], [place], [place]. This disclosure is being madepursuant to the Care Everywhere program and may not contain all information available regarding this patient. Last updated 18.[facility] Allergies No known active allergies Medications * [...] age to complete this topic Care Teams Boom Storage Relationship Specialty Start Date End Date Vito Garcia MD [address] [place] [address] PCP - General Pediatrics 05/29/17
--- OUTSIDE RECORDS SUMMARY | 2024-10-21 16:55 | XMS_ITS | Clinical Summary ---
Author Organization [facility] Address [address] [place] [address] Care Team Providers Care Tack Coverer Name Role Phone Unavailable Primary Care Provider [...] - 19+ 3-dose series) 2023 COVID-19 Vaccine (1 - 2023-2 5 season) 2024 Influenza Adult [...]
--- OUTSIDE RECORDS SUMMARY | 2024-10-21 16:55 | XMS_ITS | Encounter Summary ---
Author Organization [facility] Address [address] [place] [address] Phone Care Team Providers Care Lead Retail Sales Associate Name Role Phone Vito Garcia MD Primary Care Provider [phone] Encounter Details Date Type Department Care Team (Late st Contact Info) Description 04/01/2017 Orders Only [facility] [address] [place] [address] Jen Krishnan RN Acute swimmer's ear of right side Social History Tobacco Use Types Packs/Day Years Used Date Smoking Tobacco: Never Sex and Gender Information Value Date Recorded Sex Assigned at Not on file 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 Reorder 04/01/2017 04/01/2017 documented as of this encounter Care Teams Lead Retail Sales Associate Relationship Specialty Start Date End Date Vito Garcia MD [address] [place] [address] PCP - General 12/12/16 documented as of this encounter
--- OUTSIDE RECORDS SUMMARY | 2024-10-21 16:55 | XMS_ITS | Encounter Summary ---
Author Organization [facility] Address [address] [place] [address] Care Team Providers Care Glass Carrier Name Role Phone Vito Garcia MD Primary Care Provider Reason for Visit * Reason Onset Date Comments Insurance Issue/question 06/23/2017 Encounter Details Date Type Department Care Team (Late st Contact Info) Description 06/23/2017 Telephone [facility] Pediatrics - Neurology [facility] [place] [address] Alem Barrett APRN-CNP Insurance Issue/question Social History [...] Primary documented in this encounter Care Teams Glass Carrier Relationship Specialty Start Date End Date Vito Garcia MD [address] [place] [address] PCP - General Pediatrics 05/29/17 documented as of this encounter
--- OUTSIDE RECORDS SUMMARY | 2024-10-21 16:55 | XMS_ITS | Patient Health Summary ---
Author Organization [facility] Address [address] [place] [address] Care Team Providers Care Radiotelegraphist Name Role Phone Vito Garcia MD Primary Care Provider [phone] Note from [facility],non-owned Affiliates and Associated Physician Practices is amultiple site organization consisting of ambulatory clinics and hospital sitesin [place], [place], [place] and [place]. This disclosure is being madepursuant to the Care Everywhere program and may not contain all information available regarding this patient. Last updated 18.[facility] Allergies No known active allergies Medications [...] 06/18/2018 3:2 9 PM CDT Growth Chart: [facility] (Boys, 2-2 0 Years) Procedures * XR [...] Performed for Jaw fracture, closed, initial encounter ([facility]) * XR OUTSIDE CONSULTATION(Performed 04/18/2018) Performed for [...] IMPRESSION Left mandibular angle fracture is healing. Dimitri Delcid, have personally reviewed the images and I agree with this report. Reading Radiologist: Darcy Martin MD on 05/18/2018 at 4:37 PM Naresh Cash MD DIAGNOSTIC IMAGING O RDERABLES * XR SKULL < 4 VW (05/18/2018 3:00 PM CDT) Anatomical Region Laterality Modality Head Radiographic Elvi ging 05/18/2018 3:08 PM CDT Impressions 05/18/2018 4:58 PM CDT Nondisplaced left mandibular angle fracture. Dimitri Delcid, have personally reviewed the images and I [...] 04/18/2018 3:50 PM CDT Tim Otero MD 04/18/2018 3:50 PM Laceration Repair Date/Time: 04/18/2018 10:24 AM Performed by: TIM OTERO Authorized by: TIM OTERO Consent: Consent obtained: Verbal Consent given by: Parent Risks discussed: Poor cosmetic result Alternatives discussed: No treatment Anesthesia (see MAR for exact dosages): Anesthesia method: Local infiltration Local anesthetic: Lidocaine 1% WITH epi Laceration details: Location: Face Face location: Chin Length (cm): 2.5 Repair type: Repair type: Simple Pre-procedure details: Preparation: Patient was prepped and draped in usual sterile fashion Exploration: Contaminated: no Treatment: Area cleansed with: Saline Amount of cleaning: Standard Irrigation solution: Sterile saline Irrigation volume: 250 milliliters Irrigation method: Syringe Skin repair: Repair method: Sutures Suture size: 5-0 Suture material: Fast-absorbing gut Number of sutures: 8 Approximation: Approximation: Close Vermilion border: well-aligned Post-procedure details: Dressing: Antibiotic ointment Tim Otero MD PROCEDURE/MINOR SURG ICAL [...] images may or may not represent the ho-chunk source data set and thus may contain changes which may lower the sensitivity in the second opinion interpretation. Reading Radiologist: Charline Bill MD on 04/18/2018 at 10:59 AM Narrative 04/18/2018 10:59 AM CDT EXAMINATION: RADIOLOGY CONSULTATION ON OUTSIDE IMAGING STUDY STUDY INITIALLY PERFORMED: On 04/18/2018 by [facility]. TYPE OF STUDY: AP, oblique, and lateral [...] STUDY STUDY INITIALLY PERFORMED: On 04/18/2018 by [facility]. TYPE OF STUDY: AP, oblique, and lateral [...] images may or may not represent the ho-chunk source data set and thus may contain changes which may lower the sensitivity in the second opinion interpretation. Reading Radiologist: Charline Bill MD on 04/18/2018 at 10:59 AM Tim Otero MD DIAGNOSTIC IMAGING O [facility] Care Teams Radiotelegraphist Relationship Specialty Start Date End Date Vito Garcia MD [address] [place] [address] PCP - General Pediatrics 05/29/17
[2024-10-21 17:00] VITALS: BP 104/50; PULSE 63; RESP 18; TEMP 36.8; O2SAT 98
--- NOTE | 2024-10-21 17:13 | ED.URI ---
HPI - URI/Sore Throat General Chief Complaint: Upper Respiratory Infection Stated Complaint: throat Time Seen by Provider: 10/21/24 17:13 Source: patient Mode of arrival: ambulatory Limitations: no limitations History of Present Illness HPI Narrative: 18-year-old male seen here October 15 and tested positive for strep throat. Patient treated with amoxicillin and states sore throat getting worse. Has weird redness to tongue but tongue is not painful. States throat feels more swollen. Afebrile. All Systems reviewed and negative except as noted above. Related Data Allergies Allergy/AdvReac Type Severity Reaction Status Date / Time No Known Allergies Allergy Verified 10/21/24 17:17 Review of Systems Review of Systems: CONSTITUTIONAL: Denies fever, chills, or sweats. EYES: Denies visual changes, redness, or discharge. ENT: Denies rhinorrhea, congestion. Reports sore throat with swelling and redness to tele. Denies otalgia CARDIOVASCULAR: Denies chest pain, palpitations, or edema. RESPIRATORY: Denies cough or dyspnea. GASTROINTESTINAL: Denies abdominal pain, nausea, vomiting, or diarrhea. GENITOURINARY: Denies dysuria or hematuria. SKIN: Denies rash or itching. MUSCULOSKELETAL: Denies back pain, joint pain, or myalgia. NEUROLOGIC: Denies headache, numbness, or weakness. PSYCHIATRIC: Denies anxiety or depression. All other systems reviewed are negative, except as documented in HPI. [facility] Past Medical History Medical History ADHD (attention deficit hyperactivity disorder) Family History Family History Father Depression Grandparent Hypertension Social History Social History Smoking status: Never smoker Lack of Transportation: No Lack of Food: Never True Current Housing: I Have Housing Concerned About Future Housing: No Difficulty Paying Gas/Electric Bills: No Difficulty Paying for Meds: No Currently Unemployed: No Education: High School Diploma/GED Difficulty w/ Childcare or Family Care: No Living arrangements: with family Occupation/Education: student Additional occupation/education comments: [employer] Gender identity (if verbalized by the patient): Male Comments At time of signature, agree with nursing past medical, surgical, social and family history. There is no relevant family history pertinent to the presenting complaint. Exam Narrative: GENERAL: This is a well-nourished, well-developed patient, in no apparent distress. HEAD: normocephalic, atraumatic. EYES: PERRL. Sclera clear/white. Vision is grossly intact. EARS: External ears normal, auditory canals clear and without drainage, TMs normal without perforation. Hearing grossly intact. NOSE: External nose normal with no obvious nasal discharge, nares without redness, no rhinorrhea. THROAT: Mucous membranes moist, erythema with swelling, exudate to right tonsil. No tonsil swelling concerning for tonsillar abscess. Erythema to tongue on the right side without swelling, bleeding. NECK: Neck supple, non-tender without lymphadenopathy, masses or thyromegaly. CARDIOVASCULAR: Regular rate and rhythm without murmurs, gallops, or rubs. RESPIRATORY: Clear to auscultation. Breath sounds equal bilaterally. No wheezes, rales, or rhonchi. SKIN: warm, Dry, intact with no suspicious lesions or rash, good texture and turgor. NEURO: awake, alert, and oriented to person, place and time. There were no obvious focal neurologic abnormalities. EXTREMITIES: No joint tenderness, effusion, or edema noted. Course Course Level of Care: Express Care Visit Vital Signs Vital signs: Vital Signs Temperature 36.8 C 10/21/24 17:00 Pulse Rate 63 10/21/24 17:00 Respiratory Rate 18 10/21/24 17:00 Blood Pressure 104/50 L 10/21/24 17:00 Pulse Oximetry 98 10/21/24 17:00 Oxygen Delivery Room Air 10/21/24 17:00 Temperature 36.8 C 10/21/24 17:00 Pulse Rate 63 10/21/24 17:00 Respiratory Rate 18 10/21/24 17:00 Blood Pressure 104/50 L 10/21/24 17:00 Pulse Oximetry 98 10/21/24 17:00 Oxygen Delivery Room Air 10/21/24 17:00 Review MDM - URI/Sore Throat MDM Narrative Medical decision making narrative: will stop amoxicillin and start azithromycin. Will give prednisone for throat swelling. Patient is not having any difficulty breathing or swelling. Recommend follow-up with primary care physician if pain not improving. Patient is alert, nontoxic. Please be advised this is a medical document. It is intended for sjmj-ot-aaph communication. It is written in medical language and may contain unfamiliar abbreviations or verbiage. Medical documents are intended to carry relevant information, facts as evident, and the clinical opinion of the practitioner at the time of the encounter. This report may have been done utilizing a voice recognition system. Attempts have been made to correct errors. However, there may be uncorrected grammatical, spelling, and recognition errors present. The file time of this note does not necessarily represent the time of service. Lab Data Labs: Lab Results 10/21/24 Range/Units 17:25 POC Grp A Strep Screen Negative (Negative) Discharge Plan Discharge Clinical Impression: Strep throat Patient Disposition: Home, Self-Care Condition: Stable Instructions: Antibiotic Form, Strep Throat (ED) Additional Instructions: Stop taking amoxicillin. Start azithromycin and take until gone. Take ibuprofen or Tylenol every 6-8 hours as needed for pain. Follow-up with your primary care physician if symptoms are not improving. Patient Language: Mohawk Prescriptions: New prednisone 20 mg tablet 20 mg PO DAILY 5 Days Qty: 5 0RF azithromycin 250 mg tablet See Rx Instructions .ROUTE .COMPLEX Qty: 6 0RF Rx Instructions: For 250 mg dose pack: take 500 mg today (day 1), then 250 mg for 4 days (days 2-5) No Action amoxicillin 875 mg tablet 875 mg PO Q12H Qty: 20 0RF Rx Instructions: take all doses of medication Follow-up/Referrals: PHYSICIAN,MATERIAL HANDLING CREW SUPERVISOR [Primary Care Provider] - Time of Disposition: 17:30
[2024-10-21 17:29] LABS: EDSTREPNEGPOS1 Negative (Negative)
== END 2024-10-21 17:32 | disposition home or self-care (01) ==
PROVIDERS: Emergency Provider Nurse Practitioner Family
DX: J02.0 Streptococcal pharyngitis (principal)
CPT/HCPCS: 87081; 87880; 99213; G0463

== ENCOUNTER 2024-11-26 13:45 | Emergency (ER) | payer OTHER, SELFPAY ==
--- NOTE | ~2024-11-26 | XR_ITS ---
EXAM: XR ankle RT min 3V DATE: 11/26/2024 14:15 HISTORY: INVERSION INJURY, lateral ankle pain . COMPARISON: None available. FINDINGS: Normal mineralization. No fracture or dislocation. No lytic or blastic lesion. Joint space s are maintained. No erosion or periosteal change. Ankle joint effusion. Lateral soft tissue swelling . IMPRESSION: No acute osseous finding in the right ankle. Reviewed, dictated and finalized at location K.
--- OUTSIDE RECORDS SUMMARY | 2024-11-26 13:48 | XMS_ITS | Clinical Summary ---
Author Organization [facility] Address [address] [place] [address] Care Team Providers Care Bushler Name Role Phone Unavailable Primary Care Provider [...]
--- OUTSIDE RECORDS SUMMARY | 2024-11-26 13:48 | XMS_ITS | Referral Summary ---
Author Organization [facility] [address] [place] [address] Phone Care Team Providers Care Department Supervisor Name Role Phone Vito Garcia MD Primary [...] Qd; 5oz Bronchospasm 09/12/2014 Overview (04/01/2017): [facility] Medical examinations/reports status 07/20/2013 Overview (12/18/2016): [...] COMPLIANCE. 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
--- OUTSIDE RECORDS SUMMARY | 2024-11-26 13:48 | XMS_ITS | Encounter Summary ---
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
--- OUTSIDE RECORDS SUMMARY | 2024-11-26 13:48 | XMS_ITS | Encounter Summary ---
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
--- OUTSIDE RECORDS SUMMARY | 2024-11-26 13:48 | XMS_ITS | Clinical Summary ---
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 Gender Identity Not on file Sexual Orientation Not on file Obstetrics History Last Filed Vital Signs Vital Sign Reading [...] B Vaccine (2 o f 2 - Bexsero SCDM 2-dose series) 10/08/2022 04/07/2022 Regular Well Visit/Exam 18-64 2022 Influenza Vaccine (#1) 2024 DTaP/Tdap/Td Vaccine (7 - Td or Tdap) 04/11/2026 04/11/2016, 01/14/2010, 02/02/2006, Additional history exists Hepatitis B Screening Completed 04/29/2005 , 2004, 2004 Pneumococcal vaccine <65 Completed 006, 04/29/2005, 03/03/2005, Additional history exists Varicella Vaccines Completed 01/14/2010, 10/28/2005 HPV Vaccines Completed 05/29/2020, 04/11/2016 Meningococcal Vaccine Completed 04/07/2022, 016 Insurance [facility] IDVA IDVA IDVA Care Teams Project Crew Worker Relationship Specialty Start Date End Date Vito Garcia MD [address] [place] [address] [facility] - General 12/12/16
--- OUTSIDE RECORDS SUMMARY | 2024-11-26 13:48 | XMS_ITS | Clinical Summary ---
Author Organization [facility] Address [address] [facility] [place] [address] Care Team Providers Care Six Color Press Operator Name Role Phone Vito Garcia MD Primary Care Provider Source Comments [facility],non-owned Affiliates and Associated Physician Practices is amultiple site organization consisting of ambulatory clinics and hospital sitesin [place], [place] and [place]. This disclosure is being madepursuant to the Care Everywhere program and may not contain all information available regarding this patient. Last updated 18.[facility] Allergies No known active allergies Medications * [...] Mass Index 22.75 06/18/2018 3:29 PM CDT Plan of Treatment Health Maintenance Due Date Last Done Comments HIV SCREENING 2019 HPV VACCINE (1 - Male 3-dose series) 2019 MENINGOCOCCAL (Group B) VACC INE SHARED DECISION-MAKING (1 of 2 - Standard) 2020 HEPATITIS [...] patient's age to complete this topic MENINGOCOCCAL GROUPS A/C/Y/W VACCINE Aged Out No longer eligible b ased on patient's age to complete this topic PNEUMOCOCCAL VACCINE Aged Out No long er eligible based on patient's age to complete this topic Care Teams Six Color Press Operator Relationship Specialty Start Date End Date Vito Garcia MD [address] [place] [address] PCP - General Pediatrics 05/29/17
--- OUTSIDE RECORDS SUMMARY | 2024-11-26 13:48 | XMS_ITS | Referral Summary ---
Author Organization [facility] Address [address] [place] [address] Care Team Providers Care Embosser Operator Name Role Phone Vito Garcia MD Primary Care Provider [phone] Source Comments [facility],non-owned Affiliates and Associated Physician Practices is amultiple site organization consisting of ambulatory clinics and hospital sitesin [place], [place], [place] and [place]. This disclosure is being madepursuant to the Care Everywhere program and may not contain all information available regarding this patient. Last updated 18.[facility] Allergies No known active allergies Medications [...] 06/18/2018 3:29 PM CDT Plan of Treatment Not on file Care Teams Embosser Operator Relationship Specialty Start Date End Date Vito Garcia MD [address] [place] [address] PCP - General Pediatrics 05/29/17
--- OUTSIDE RECORDS SUMMARY | 2024-11-26 13:48 | XMS_ITS | Encounter Summary ---
Author Organization [facility] Address [address] [place] [address] Phone Care Team Providers Care Certified Pathology Assistant Name Role Phone Vito Garcia MD Primary Care Provider [phone] Encounter Details Date Type Department Care Team (Late st Contact Info) Description 04/01/2017 Orders Only [facility] [address] [place] [address] Jen Krishnan RN Acute swimmer's ear of right side Social History Tobacco Use Types Packs/Day Years Used Date Smoking Tobacco: Never Sex and Gender Information Value Date Recorded Sex Assigned at Not on file 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 Reorder 04/01/2017 04/01/2017 documented as of this encounter Care Teams Certified Pathology Assistant Relationship Specialty Start Date End Date Vito Garcia MD [address] [place] [address] PCP - General 12/12/16 documented as of this encounter
--- OUTSIDE RECORDS SUMMARY | 2024-11-26 13:48 | XMS_ITS | Patient Health Summary ---
Author Organization [facility] Address [address] [place] [address] Care Team Providers Care Titrator Name Role Phone Vito Garcia MD Primary Care Provider Note from [facility],non-owned Affiliates and Associated Physician Practices is amultiple site organization consisting of ambulatory clinics and hospital sitesin [place], [place], [place] and [place]. This disclosure is being madepursuant to the Care Everywhere program and may not contain all information available regarding this patient. Last updated 18.[facility] Allergies No known [...] Mass Index 22.75 06/18/2018 3:29 PM CDT Procedures * XR WRIST LEFT 3VW OR [...] Jaw fracture, closed, initial encounter ([facility]) * XR OUTSIDE CONSULTATION(Performed 04/18/2018) [...] visualized cervical spine appears normal. Procedure Note Dimirti Correia MD - 05/18/2018 Skull x-ray: AP [...] images may or may not represent the [place] source data set and thus may contain changes which may lower the sensitivity in the second opinion interpretation. Reading Radiologist: Charline Bill MD on 04/18/2018 at 10:59 AM Narrative 04/18/2018 10:59 AM CDT EXAMINATION: RADIOLOGY CONSULTATION ON OUTSIDE IMAGING STUDY STUDY INITIALLY PERFORMED: On 04/18/2018 by [facility]. TYPE OF STUDY: AP, oblique, and lateral [...] evidence of grossly displaced fracture. Procedure Note Chraline Bill MD - 04/18/2018 EXAMINATION: RADIOLOGY CONSULTATION ON OUTSIDE IMAGING STUDY STUDY INITIALLY PERFORMED: On 04/18/2018 by [facility]. TYPE OF STUDY: AP, oblique, and lateral [...] images may or may not represent the [place] source data set and thus may contain changes which may lower the sensitivity in the second opinion interpretation. Reading Radiologist: Charline Bill MD on 04/18/2018 at 10:59 AM Tim [facility] Care Teams Titrator Relationship Specialty Start Date End Date Vito Garcia MD [address] [place] [id number] PCP - General Pediatrics 05/29/17
--- OUTSIDE RECORDS SUMMARY | 2024-11-26 13:48 | XMS_ITS | Encounter Summary ---
Author Organization [facility] Address [address] [place] [address] Care Team Providers Care History Professor Name Role Phone Vito Garcia MD Primary Care Provider Reason for Visit * Reason Onset Date Comments Insurance Issue/question 06/23/2017 Encounter Details Date Type Department Care Team (Late st Contact Info) Description 06/23/2017 Telephone [facility] Pediatrics - Neurology [facility] [place] [address] Alem Barrett APRN-CNP Insurance Issue/question Social History [...] Primary documented in this encounter Care Teams History Professor Relationship Specialty Start Date End Date Vito Garcia MD [address] [place] [id number] PCP - General Pediatrics 05/29/17 documented as of this encounter
[2024-11-26 13:54] VITALS: BP 125/67; PULSE 59; RESP 16; TEMP 36.4; O2SAT 100
--- NOTE | 2024-11-26 14:07 | ED.LOWEXIN ---
HPI - Extremity Injury (Lower) General Chief Complaint: Extremity Injury, Lower Stated Complaint: Right Ankle Injury Time Seen by Provider: 11/26/24 14:07 Source: patient, RN notes reviewed and old records reviewed Mode of arrival: ambulatory Limitations: no limitations History of Present Illness HPI Narrative: 19 year old male who [facility] with complaints of swelling and some pain to his right lateral ankle for 1 week duration. Patient reports that he rolled his right ankle plating football and did have moderate of swelling and pain of his lateral ankle afterwards. Patient reports that swelling and pain have decreased but continues to have some tenderness to the lateral right ankle with some bruising noted Patient reports that he has used ice and also compression to his right lateral ankle. MD complaint: ankle injury Onset (ago): week(s) (1) Injury: Right: ankle (lateral) Type of Injury: other (rolled) Place: street/outdoors Severity scale (1-10): 7 Exacerbating factors: weight bearing Treatments prior to arrival: cold therapy and other (compression and Ibuprofen) Related Data Allergies Allergy/AdvReac Type Severity Reaction Status Date / Time No Known Allergies Allergy Verified 10/21/24 17:17 Review of Systems Review of Systems: CONSTITUTIONAL: Denies fever, chills, or sweats. EYES: Denies visual changes, redness, or discharge. ENT: Denies rhinorrhea, congestion, sore throat, or otalgia. CARDIOVASCULAR: Denies chest pain, palpitations, or edema. RESPIRATORY: Denies cough or dyspnea. GASTROINTESTINAL: Denies abdominal pain, nausea, vomiting, or diarrhea. GENITOURINARY: Denies dysuria or hematuria. SKIN: Denies rash or itching. MUSCULOSKELETAL: Denies back pain,positive for right lateral ankle injury with pain and swelling and noted bruising to lateral ankle and foot, or myalgia. NEUROLOGIC: Denies headache, numbness, or weakness. PSYCHIATRIC: Denies anxiety or depression. All systems reviewed & are unremarkable except as noted in HPI and below PMFSH Past Medical History Medical History History of strep sore throat ADHD (attention deficit hyperactivity disorder) Family History Family History Father Depression Grandparent Hypertension Social History Social History Smoking status: Never smoker Lack of Transportation: No Lack of Food: Never True Current Housing: I Have Housing Concerned About Future Housing: No Difficulty Paying Gas/Electric Bills: No Difficulty Paying for Meds: No Currently Unemployed: No Education: High School Diploma/GED Difficulty w/ Childcare or Family Care: No Living arrangements: with family Occupation/Education: student Additional occupation/education comments: [employer] Gender identity (if verbalized by the patient): Male Comments At time of signature, agree with nursing past medical, surgical, social and family history. There is no relevant family history pertinent to the presenting complaint Exam Narrative: GENERAL: Well-appearing, well-nourished, and in no acute distress. HEAD: Normocephalic, atraumatic. EYES: PERRLA and EOMI. ENT: Nares clear, no rhinorrhea or epistaxis. Mucous membranes moist TM's normal with good light reflex, throat pink with no swelling.. NECK: Supple. no lymphadenopathy CHEST: Clear to auscultation. No respiratory distress. no cough or any congestion.SAO2 100% on room air HEART: Regular rate and rhythm. No murmur heard. Normal peripheral pulses. ABDOMEN: Soft, nontender, nondistended, normal active bowel sounds. EXTREMITIES: Normal range of motion. No edema. positive for bruising to lateral right ankle and foot with minimal swelling present at this time, patient states that pain and swelling have improved. right pedal pulse is strong no obvious deformity noted. SKIN: Warm, dry, no rash. NEURO: No focal deficits. Alert and oriented x3. Course Course Emergency Course: Patient is aware of diagnosis, understands and agrees to treatment plan.? Anticipatory guidance given.? Patient agrees to follow-up as directed and is aware of reasons to seek care at the emergency department. Portions of this record may have been created with voice recognition software Level of Care: Express Care Visit Vital Signs Vital signs: Vital Signs Temperature 36.4 C L 11/26/24 13:54 Pulse Rate 59 L 11/26/24 13:54 Respiratory Rate 16 11/26/24 13:54 Blood Pressure 125/67 11/26/24 13:54 Pulse Oximetry 100 11/26/24 13:54 Oxygen Delivery Room Air 11/26/24 13:54 Temperature 36.4 C L 11/26/24 13:54 Pulse Rate 59 L 11/26/24 13:54 Respiratory Rate 16 11/26/24 13:54 Blood Pressure 125/67 11/26/24 13:54 Pulse Oximetry 100 11/26/24 13:54 Oxygen Delivery Room Air 11/26/24 13:54 Reviewed MDM - Extremity Injury (Lower) Differential Diagnosis Differential diagnosis: Likely ankle sprain and strain, ankle fracture and other (pain right ankle,) Medical Records Attestation: I reviewed the patient's medical records. Imaging Data Attestation: I personally reviewed and interpreted this imaging study as follows: My impression: no acute osseous findings (over 45 minute wait for X-ray report) Radiologist's impression: [address] [place] [address] XRay Report Signed Patient: Wally Winchester : 2005 MR#: [id number] Age: 19 Acct:[id number] Loc: [facility] ADM Date: 11/26/24Attending Dr: Ordering Physician: Jen Meier APRN Date of Service: 11/26/24 Procedure(s): XR ankle RT min 3V Accession Number(s): [id number] cc: Jen Meier APRN~ EXAM: XR ankle RT min 3V DATE: 11/26/2024 14:15 HISTORY: INVERSION INJURY, lateral ankle pain . COMPARISON: None available. FINDINGS: Normal mineralization. No fracture or dislocation. No lytic or blastic lesion. Joint spaces are maintained. No erosion or periosteal change. Ankle joint effusion. Lateral soft tissue swelling. IMPRESSION: No acute osseous finding in the right ankle. Reviewed, dictated and finalized at location K. Please be advised this is a medical document. It is intended for plmb-rz-qcpt communication. It is written in medical language and may contain unfamiliar abbreviations or verbiage. Medical documents are intended to carry relevant information, facts as evident, and the clinical opinion of the practitioner at the time of the encounter. This report may have been done utilizing a voice recognition system. Attempts have been made to correct errors. However, there may be uncorrected grammatical, spelling, and recognition errors present. The file time of this note does not necessarily represent the time of service. Dictated By: Poncho Herrmann MD 11/26/24 1512 Signed By: <Electronically signed by Poncho Herrmann MD in OV> Critical Care Time Critical Care Time Critical Care Time: No Discharge Plan Discharge Clinical Impression: Sprain and strain of right ankle Patient Disposition: Home, Self-Care Condition: Stable Instructions: Antibiotic Form, Ankle Sprain (ED) Additional Instructions: Elastic wrap or orthopedic splint as directed for comfort and lace up splint for support Tylenol for lesser pain Ibuprofen regularly for the next 2-3 days for the inflammation Follow-up with orthopedic surgeon if any continued pain or problems Follow-up with PCP if further problems or concerns Ice to the area 20-30 minutes 4-6 times a day Elevate above heart If your symptoms persist, change or worsen significantly before you can contact your personal physician then please, without delay, go to the emergency department for further evaluation. Follow-up with PCP in 7-10 days or sooner if needed Patient Language: Upper Sorbian Follow-up/Referrals: PHYSICIAN NOT ON STAFF,NONSTAFF [Primary Care Provider] - Time of Disposition: 15:17 Quality [place] Coma Scale Eyes: Open Verbal: Oriented and Alert Motor: Follows Commands [place] Coma Total Score: 15
== END 2024-11-26 15:21 | disposition home or self-care (01) ==
PROVIDERS: Emergency Provider Registered Nurse
DX: S93.401A Sprain of unspecified ligament of right ankle, initial encounter (principal); S96.911A Strain of unspecified muscle and tendon at ankle and foot level, right foot, initial encounter; X50.9XXA Other and unspecified overexertion or strenuous movements or postures, initial encounter; Y93.61 Activity, american tackle football
CPT/HCPCS: 73610; 99213; G0463

== ENCOUNTER 2025-01-25 08:55 | Emergency (ER) | payer OTHER, SELFPAY ==
--- OUTSIDE RECORDS SUMMARY | 2025-01-25 09:03 | XMS_ITS | Clinical Summary ---
Author Organization 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
--- OUTSIDE RECORDS SUMMARY | 2025-01-25 09:03 | XMS_ITS | Encounter Summary ---
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
--- OUTSIDE RECORDS SUMMARY | 2025-01-25 09:03 | XMS_ITS | Encounter Summary ---
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
--- OUTSIDE RECORDS SUMMARY | 2025-01-25 09:03 | XMS_ITS | Encounter Summary ---
Author Organization [facility] Address [address] [place] [address] Phone Care Team Providers Care Retail Customer Service Representative Name Role Phone Vito Garcia MD Primary Care Provider Encounter Details Date Type Department Care Team (Late st Contact Info) Description 04/01/2017 Orders Only [facility] [address] [place] [address] Jen Krishnan RN Acute swimmer's ear of right side Social History Tobacco Use Types Packs/Day Years Used Date Smoking Tobacco: Never Sex and Gender Information Value Date Recorded Sex Assigned at Not on file 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 Reorder 04/01/2017 04/01/2017 documented as of this encounter Care Teams Retail Customer Service Representative Relationship Specialty Start Date End Date Vito Garcia MD [address] [place] [address] PCP - General 12/12/16 documented as of this encounter
--- OUTSIDE RECORDS SUMMARY | 2025-01-25 09:03 | XMS_ITS | Encounter Summary ---
Author Organization [facility] Address [address] [place] [address] Care Team Providers Care Deputy District Customs Director Name Role Phone Vito Garcia MD Primary Care Provider [phone] Reason for Visit * Reason Onset Date Comments Insurance Issue/question 06/23/2017 Encounter Details Date Type Department Care Team (Late st Contact Info) Description 06/23/2017 Telephone [facility] Pediatrics - Neurology [address] [place] [address] Alem Barrett APRN-CNP Insurance Issue/question Social History Tobacco Use Types Packs/Day Years Used Date Smoking Tobacco: Never Alcohol Use Standard Drinks/Week Comments No 0 (1 standard drink = 0.6 oz pur e alcohol) Sex and Gender Information Value Date Recorded Sex Assigned at Not on file Legal Sex Male 11:04 AM CDT Gender Identity Not on file Sexual Orientation Not on file documented as of this encounter Miscellaneous Notes * Telephone Encounter - Alem Barrett APRN-CNP - 06/23/2017 10:01 AM CDT Referral as requested for psychiatry placed. * Telephone Encounter - Judith Vera - 06/23/2017 9:38 AM CDT I spoke with mom and she needs a referral to Psychiatry instead of Psychology because insurance will not pay for it. documented in this encounter Plan of Treatment Not on file documented as of this encounter Visit Diagnoses Diagnosis Attention deficit hyperactivity disorder (ADHD), unspecified ADHD type- Primary documented in this encounter Care Teams Deputy District Customs Director Relationship Specialty Start Date End Date Vito Garcia MD [address] [place] [address] PCP - General Pediatrics 05/29/17 documented as of this encounter
--- OUTSIDE RECORDS SUMMARY | 2025-01-25 09:03 | XMS_ITS | Clinical Summary ---
Author Organization [facility] Address [address] [facility] [place] [address] Care Team Providers Care Autocad Technician Name Role Phone Vito Garcia MD Primary Care Provider [phone] Source Comments [facility],non-owned Affiliates and Associated Physician Practices is amultiple site organization consisting of ambulatory clinics and hospital sitesin [place], [place], [place] and [place]. This disclosure is being madepursuant to the Care Everywhere program and may not contain all information available regarding this patient. Last updated 18.[facility] Allergies No known active allergies Medications * Be aware that medications may not be up to date on this document. Alwaysverify current medications with the patient. guanFACINE (TENEX) 1 MG tablet 1 mg [...] VACCINE (1 - 2023-2 5 season) 2024 DEPRESSION SCREENING 09/14/2024 INFLUENZA VACCINE (Season Ended) 2025 ZOSTER VACCINE (1 of 2) 2054 HIB VACCINE Aged Out No longer eligi ble based on patient's age to complete this topic MENINGOCOCCAL GROUPS A/C/Y/W VACCINE Aged Out No longer eligible b ased on patient's age to complete this topic PNEUMOCOCCAL VACCINE Aged Out No long er eligible based on patient's age to complete this topic Insurance [place]ICAID - [place] * Guarantor: ARTURO W[place] Account Type Relation to Patient Date of Phone Billing Address Personal[place] [address] MEDICAID - [facility] Care Teams Autocad Technician Relationship Specialty Start Date End Date Vito Garcia MD [address] [place] [address] PCP - General Pediatrics 05/29/17
--- OUTSIDE RECORDS SUMMARY | 2025-01-25 09:03 | XMS_ITS | Clinical Summary ---
Author Organization [facility] Address [address] [place] [address] Care Team Providers Care Tentmaker Name Role Phone Unavailable Primary Care Provider [...] Vaccine (1 - 2023-2 5 season) 2024 Meningococcal Vaccine Aged Out No tyrone jennifer eligible based on patient's age to complete this topic Pneumococcal Vaccine: Pediat rics (0 to 5 Years) and At-Risk Patients (6 to 49 Years) Aged Out No longer eligible b ased on patient's age to complete this topic RSV Immunizations Under 20 Months Aged Out No longer eligible based on patient's age to complete this topic
--- OUTSIDE RECORDS SUMMARY | 2025-01-25 09:03 | XMS_ITS | Referral Summary ---
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
[2025-01-25 09:04] VITALS: BP 127/64; PULSE 82; RESP 16; TEMP 36.6; O2SAT 99
--- NOTE | 2025-01-25 09:05 | ED_ITS ---
HPI - URI/Sore Throat General Chief Complaint: Upper Respiratory Infection Stated Complaint: sore throat/headache/stuffy nose Time Seen by Provider: 01/25/25 09:41 Source: patient and RN notes reviewed Mode of arrival: ambulatory Limitations: no limitations History of Present Illness HPI Narrative: 19-year-old male presents with concern for sore throat. Reports 6 day history of stuffy nose, headache, sore throat. Denies fever, body aches, chills, sweats. Denies cough. Reports he has been taking cough drops ibuprofen. MD elicited complaint: sore throat and nasal congestion Related Data Allergies Allergy/AdvReac Type Severity Reaction Status Date / Time No Known Allergies Allergy Verified 01/25/25 09:31 Review of Systems Review of Systems: CONSTITUTIONAL: Denies malaise, chills, sweats, or fever. EYES: Denies visual changes, redness, or discharge. ENT: Reports rhinorrhea, congestion, and sore throat. CARDIOVASCULAR: Denies chest pain, palpitations, or edema. RESPIRATORY: Reports cough. Denies dyspnea. GASTROINTESTINAL: Denies abdominal pain, nausea, vomiting, diarrhea SKIN: Denies rash or itching. MUSCULOSKELETAL: Denies myalgia. NEUROLOGIC: Reports headache. All systems reviewed & are unremarkable except as noted in HPI and below PMFSH Past Medical History Medical History History of strep sore throat ADHD (attention deficit hyperactivity disorder) Family History Family History Father Depression Grandparent Hypertension Social History Social History Smoking status: Never smoker Lack of Transportation: No Lack of Food: Never True Current Housing: I Have Housing Concerned About Future Housing: No Difficulty Paying Gas/Electric Bills: No Difficulty Paying for Meds: No Currently Unemployed: No Education: High School Diploma/GED Difficulty w/ Childcare or Family Care: No Living arrangements: with family Occupation/Education: student Additional occupation/education comments: [employer] Gender identity (if verbalized by the patient): Male Comments At time of signature, agree with nursing past medical, surgical, social and family history. There is no relevant family history pertinent to the presenting complaint Exam Narrative: GENERAL: Well-appearing, well-nourished, and in no acute distress. HEAD: Normocephalic EYES: PERRLA, conjunctivae clear ENT: Nares clear, turbinates edematous and erythematous, clear discharge. Mucous membranes moist. TM pearly samayoa with dull light reflex bilaterally; no tragal tenderness. Oropharynx not erythematous without lesions. Tonsils not enlarged and without exudate, no drooling, no hoarseness, no trismus, uvula midline. NECK: Supple. No lymphadenopathy CHEST: Clear to auscultation, breath sounds equal. No wheezing, rhonchi, rales, or stridor. No respiratory distress, speaks in full sentences. HEART: Regular rate and rhythm. No murmur heard. SKIN: Warm, dry, no rash. NEURO: Alert and oriented x3. PSYCH: Normal mood and affect Course Course Emergency Course: Patient is aware of diagnosis, understands and agrees to treatment plan. Anticipatory guidance given. Patient agrees to follow-up as directed and is aware of reasons to seek care at the emergency department. Portions of this record may have been created with voice recognition software Level of Care: Express Care Visit Vital Signs Vital signs: Reviewed. MDM - URI/Sore Throat MDM Narrative Medical decision making narrative: Differential diagnosis considered: Cohen virus, strep pharyngitis, allergic rhi nitis, upper respiratory tract infection, sinusitis, rhinosinusitis, nasopharyngitis. viral pharyngitis, otitis media, otitis externa, pneumonia, bronchitis, viral cough syndrome, viral syndrome, and influenza. Exam findings show no acute concerns or changes; patient is non-toxic appearing and is in no distress. Patient is appropriate for outpatient treatment and follow-up. Lab Data Attestation: I reviewed the patient's lab results. Critical Care Time Critical Care Time Critical Care Time: No Discharge Plan Discharge Clinical Impression: Upper respiratory infection Patient Disposition: Home Condition: Stable Instructions: Upper Respiratory Infection (ED) Additional Instructions: Your rapid strep swab was negative today at [facility]. A throat culture will be sent to the laboratory for further testing. If the test is positive, you will receive a phone call within 48 hours and an appropriate antibiotic will be initiated at that time. Your symptoms are likely due to a viral illness, which is not treated with antibiotics. Viral symptoms can be present for up to a few weeks. -Alternate Tylenol and Motrin per package directions for fever or pain. -Antihistamine medication such as Benadryl at night and Zyrtec during the day can help improve symptoms. -Eat and drink things that are easy to swallow, like tea or soup, or popsicles to suck on. -Oral rinses such as: Salt water gargles and/or may use topical anesthetic (eg. Chloraseptic spray) or lozenges to relieve dryness or throat pain). -Frequent hand washing or hand c software engineer is one of the best ways to prevent spread of infection. -Follow up with primary care provider in 2-3 days if condition is not improving; or seek ER visit if you have trouble breathing, cannot drink enough fluids, have muffled voice, difficulty opening your mouth, or severe swelling. Patient Language: Mosotho Prescriptions: New cetirizine-pseudoephedrine [Zyrtec-D] 5-120 mg tablet extended release 12 hr 1 tablet PO Q12H PRN (Reason: nasal congestion) Qty: 12 0RF Follow-up/Referrals: UNKNOWN,DOCTOR [Primary Care Provider] - Time of Disposition: 09:45
[2025-01-25 10:30] LABS: EDSTREPNEGPOS1 Negative (Negative)
== END 2025-01-25 09:50 | disposition home or self-care (01) ==
PROVIDERS: Emergency Provider Nurse Practitioner
DX: J02.9 Acute pharyngitis, unspecified (principal); J06.9 Acute upper respiratory infection, unspecified
CPT/HCPCS: 87081; 87880; 99213; G0463

== ENCOUNTER 2025-04-10 17:11 | Emergency (ER) | payer OTHER, SELFPAY ==
--- OUTSIDE RECORDS SUMMARY | 2025-04-10 17:12 | XMS_ITS | Encounter Summary ---
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
--- OUTSIDE RECORDS SUMMARY | 2025-04-10 17:12 | XMS_ITS | Encounter Summary ---
Author Organization [facility] Address [address] [place] [address] Care Team Providers Care Cigarette Machines Mechanic Name Role Phone Vito Garcia MD Primary Care Provider Reason for Visit * Reason Onset Date Comments Insurance Issue/question 06/23/2017 Encounter Details Date Type Department Care Team (Late st Contact Info) Description 06/23/2017 Telephone [facility] - Neurology [address] [place] [id number] Alem Barrett APRN-CNP Insurance Issue/question Social History [...] Primary documented in this encounter Care Teams Cigarette Machines Mechanic Relationship Specialty Start Date End Date Vito Garica MD [address] [place] [address] PCP - General Pediatrics 05/29/17 documented as of this encounter
--- OUTSIDE RECORDS SUMMARY | 2025-04-10 17:12 | XMS_ITS | Encounter Summary ---
Author Organization [facility] Address [address] [place] [address] Phone Care Team Providers Care Computer Applications Developer Name Role Phone Vito Garcia MD Primary Care Provider [phone] Encounter Details Date Type Department Care Team (Late st Contact Info) Description 04/01/2017 Orders Only [facility] [address] [place] [address] Jne Krishnan RN Acute swimmer's ear of right side Social History Tobacco Use Types Packs/Day Years Used Date Smoking Tobacco: Never Sex and Gender Information Value Date Recorded Sex Assigned at Not on file 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 Reorder 04/01/2017 04/01/2017 documented as of this encounter Care Teams Computer Applications Developer Relationship Specialty Start Date End Date Vito Garcia MD [address] [place] [id number] PCP - General 12/12/16 documented as of this encounter
--- OUTSIDE RECORDS SUMMARY | 2025-04-10 17:12 | XMS_ITS | Referral Summary ---
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
--- OUTSIDE RECORDS SUMMARY | 2025-04-10 17:12 | XMS_ITS | Clinical Summary ---
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 Gender Identity Not on file Sexual Orientation [...] Well Visit/Exam 18-64 2022 Influenza Vaccine (#1) 2025 DTaP/Tdap/Td Vaccine (7 - Td or Tdap) 04/11/2026 04/11/2016, 01/14/2010, 02/02/2006, Additional history exists Hepatitis B Screening Completed 04/29/2005 , 2004, 2004 Pneumococcal vaccine <65 Completed 006, 04/29/2005, 03/03/2005, Additional history exists Varicella Vaccines Completed 01/14/2010, 10/28/2005 HPV Vaccines Completed 05/29/2020, 04/11/2016 Meningococcal Vaccine Completed 04/07/2022, 016 Insurance [facility] IDDE IDDE IDDE Care Teams Light Adjuster Relationship Specialty Start Date End Date Vito Garcia MD [address] [place] [address] [facility] - General 12/12/16
--- OUTSIDE RECORDS SUMMARY | 2025-04-10 17:12 | XMS_ITS | Clinical Summary ---
Author Organization [facility] Address [address] [place] [address] Care Team Providers Care Nc Machinist Name Role Phone Vito Garcia MD Primary Care Provider Source Comments [facility],non-owned Affiliates and Associated Physician Practices is amultiple site organization consisting of ambulatory clinics and hospital sitesin [place], [place], [place] and [place]. This disclosure is being madepursuant to the Care Everywhere program and may not contain all information available regarding this patient. Last updated 18.[facility] Allergies No known active [...] P M CDT Height 164.3 cm (5' 4.69) 06/18/2018 3:29 PM CD T Body Mass [...] season) 2024 DEPRESSION SCREENING 09/14/2024 INFLUENZA VACCINE (#1) 2025 ZOSTER VACCINE (1 of 2) 2054 [...] Phone Billing Address Personal/[place] [address] MEDICAID - [facility] Care Teams Nc Machinist Relationship Specialty Start Date End Date Vito Garcia MD [address] [place] [address] PCP - General Pediatrics 05/29/17
--- OUTSIDE RECORDS SUMMARY | 2025-04-10 17:12 | XMS_ITS | Clinical Summary ---
Author Organization [facility] Address [address] [place] [address] Care Team Providers Care Securities Counselor Name Role Phone Unavailable Primary Care Provider [...]
--- OUTSIDE RECORDS SUMMARY | 2025-04-10 17:12 | XMS_ITS | Encounter Summary ---
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
[2025-04-10 17:16] VITALS: BP 126/70; PULSE 57; RESP 16; TEMP 36.8; O2SAT 99
--- NOTE | 2025-04-10 17:21 | ED_ITS ---
HPI - URI/Sore Throat General Chief Complaint: Upper Respiratory Infection Stated Complaint: throat History of Present Illness HPI Narrative: patient is a 19-year-old male, past medical history significant for previous history of strep, presents to [facility] with 4-5 day history of sore throat symptoms. He has no additional URI symptoms, denies rhinorrhea or cough. He has not had fever. He denies known sick contacts but did travel for work to [place]. He denies any additional associated symptoms or modifying factors. His immunizations are up-to-date. Related Data Home Medications ?Medication ?Instructions ?Recorded ?Confirmed ?Last Taken ?Type No Home Medications 04/10/25 Unknown History Allergies Allergy/AdvReac Type Severity Reaction Status Date / Time No Known Allergies Allergy Verified 04/10/25 17:19 Review of Systems ENT: Reports as per [facility] Past Medical History Medical History History of strep sore throat ADHD (attention deficit hyperactivity disorder) Family History Family History Father Depression Grandparent Hypertension Social History Social History Smoking status: Never smoker Lack of Transportation: No Lack of Food: Never True Current Housing: I Have Housing Concerned About Future Housing: No Difficulty Paying Gas/Electric Bills: No Difficulty Paying for Meds: No Currently Unemployed: No Education: High School Diploma/GED Difficulty w/ Childcare or Family Care: No Living arrangements: with family Occupation/Education: student Additional occupation/education comments: [employer] Gender identity (if verbalized by the patient): Male Exam Const: General: healthy appearing and no acute distress Nutritional Appearance: well nourished Orientation/consciousness: patient oriented x3 Limitations: no limitations HENMT: Head: normal to inspection Ears: external ears normal and TM's normal bilaterally Face/Nose/Sinus: Normal external nose present and Normal nares present Face and sinus: normal facial exam and sinuses nontender Mouth: Yes Normal oral and palatal mucosa present and Yes lip normal Teeth and gingiva: dentition normal and abnormal tooth and associated gingiva Other: patient has a single aphthous ulceration to the left anterior tonsillar pillar. There is no tonsillar hypertrophy, no otherwise lesions noted to the pharyngeal or buccal mucosa. No trismus Eyes: Conjunctivae: conjunctivae normal Pupils: Equal, round and reactive pupils present EOM: EOMs intact bilaterally Direct Ophthalmoscopy: no photophobia Neck: Neck: normal visual inspection, no lymphadenopathy and no meningeal signs Resp: Effort & Inspection: normal respiratory effort Auscultation: clear to auscultation bilaterally Cardio: Rate: regular rate Rhythm: regular rhythm Skin: General skin exam: normal color Rashes: no rashes Wounds: no wounds Neuro: General: patient oriented x3, moves all extremities, no meningeal signs, no focal motor deficits and CN's II-XI intact bilaterally Cranial nerves: Yes Nystagmus not present Speech: normal speech Gait exam (Neuro): Normal gait present Extrem: General: normal to inspection, no clubbing, cyanosis or edema and no pedal edema Course Course Emergency Course: rapid strep is negative, examination is consistent with a viral stomatitis, will treat supportively, follow-up with PCP if symptoms persist. Patient is agreeable plan Level of Care: Express Care Visit ([id number]) Vital Signs Vital signs: Vital Signs Temperature 36.8 C 04/10/25 17:16 Pulse Rate 57 L 04/10/25 17:16 Respiratory Rate 16 04/10/25 17:16 Blood Pressure 126/70 04/10/25 17:16 Pulse Oximetry 99 04/10/25 17:16 Oxygen Delivery Room Air 04/10/25 17:16 Temperature 36.8 C 04/10/25 17:16 Pulse Rate 57 L 04/10/25 17:16 Respiratory Rate 16 04/10/25 17:16 Blood Pressure 126/70 04/10/25 17:16 Pulse Oximetry 99 04/10/25 17:16 Oxygen Delivery Room Air 04/10/25 17:16 MDM - URI/Sore Throat MDM Narrative Medical decision making narrative: Strep negative, stomatitis noted on examination Differential Diagnosis Differential diagnosis: Likely upper respiratory infection, viral infection, pharyngitis and other ( strep) Lab Data Lab results narrative: strep negative Discharge Plan Discharge Clinical Impression: Aphthous stomatitis Patient Disposition: Home Condition: Stable Instructions: Antibiotic Form, Gingivostomatitis (ED) Additional Instructions: REST, DRINK PLENTY FLUIDS, YOU MAY TAKE TYLENOL AND/OR IBUPROFEN DIRECTED [id number] FOR DISCOMFORT. FOLLOW-UP WITH YOUR PRIMARY DOCTOR IF YOUR SYMPTOMS NOT RESOLVING IN 3-5 DAYS Patient Language: Chinese Prescriptions: No Action No Home Medications Follow-up/Referrals: PHYSICIAN,EMERGENCY MANAGEMENT CONSULTANT [Primary Care Provider] -
[2025-04-10 17:34] LABS: EDSTREPNEGPOS1 Negative (Negative)
== END 2025-04-10 17:38 | disposition home or self-care (01) ==
PROVIDERS: Emergency Provider Nurse Practitioner Family
DX: K12.0 Recurrent oral aphthae (principal)
CPT/HCPCS: 87880; 99212; G0463